=== PATIENT | female | born 1935 | race Two or more races ===

== ENCOUNTER 2021-11-04 17:42 | Inpatient (IN) | payer OTHER ==
[~2021-11-04] VITALS: Ht 152.4 cm; Wt 60.0 kg
[2021-11-04 18:55] LABS: Basophils # (auto) 0.1 10 ^3/uL (0-0.2); Basophils % (auto) 0.5 % (0.0-2.0); Eosinophils # (auto) 0 10 ^3/uL (0-0.8); Eosinophils % (auto) 0.4 % (0.0-7.0); Hematocrit 47.8 % (36.0-46.0); Hemoglobin 16.3 g/dL (12.2-16.2); Lymphocytes # (auto) 2.4 10 ^3/uL (0.4-5.4); Lymphocytes % (auto) 21.8 % (10.0-50.0); Mean Corpuscular Hemoglobin 32.4 pg (28.0-32.0); Mean Corpuscular Hgb Conc. 34.1 g/dL (32.0-36.0); Mean Corpuscular Volume 95.2 fL (80.0-100.0); Monocytes # (auto) 0.6 10 ^3/uL (0-1.3); Monocytes % (auto) 5.8 % (0.0-12.0); Neutrophils # (auto) 7.9 10 ^3/uL (1.6-8.6); Neutrophils % (auto) 71.5 % (37.0-80.0); Nucleated Red Blood Cells % 0.1 %; Red Blood Cells 5.02 10^6/uL (4.0-5.20); Red Cell Distribution Width 13.3 % (11.8-14.3)
[2021-11-04 19:17] LABS: Albumin 3.6 g/dL (3.4-5.0); BUN/Creatinine Ratio 27.1; Calcium 8.8 mg/dL (8.5-10.1); Potassium 4.2 mmol/L (3.5-5.1)
[2021-11-04 19:20] LABS: Bilirubin, Total 0.6 mg/dL (0.2-1.0); Total Protein 7.4 g/dL (6.4-8.2)
[2021-11-04 19:33] LABS: Urine Bacteria NONE SEEN /hpf (None Seen); Urine Blood 3+ /uL (Negative); Urine Mucus FEW (None Seen); Urine Specific Gravity 1.019 (1.001-1.035); Urine WBC 1591 /hpf (0 - 5); Urine WBC Clumps PRESENT /hpf (None Seen)
[2021-11-04] MEDS ORDERED: SODIUM CHLORIDE 0.9% 500 ML IVB ONE (20:15)
[2021-11-04] MEDS ORDERED: cefTRIAXone 1GM/50ML D5W 50 ML IV ONE (20:15)
[2021-11-04] MEDS ORDERED: DOCUSATE SOD 100 MG CAP PO PRN (21:15)
[2021-11-04] MEDS ORDERED: HYDROcodone-ACET 5/325MG TAB PO PRN (21:15)
[2021-11-04] MEDS ORDERED: ONDANSETRON HCL 4 MG/2 ML VIAL IV PRN (21:15)
[2021-11-04] MEDS ORDERED: ACETAMINOPHEN 325 MG TAB PO PRN (21:15)
[2021-11-04] MEDS ORDERED: MORPHINE SULFATE INJECTION 2 MG/ML SYRG IV PRN (22:00)
[2021-11-04] MEDS ORDERED: NITROGLYCERIN 0.4 MG SL TAB SL PRN (22:00)
[2021-11-04] MEDS ORDERED: hydrALAZINE HCL 20 MG/ML VL IV PRN (23:00)
[2021-11-05] VITALS (7 sets, daily range): BP systolic 121–137; BP diastolic 63–80
[2021-11-05] MEDS ORDERED: LEVO50TA7 PO (02:13)
[2021-11-05] MEDS ORDERED: DONETAB5 PO (02:13)
[2021-11-05] MEDS: SODIUM CHLOR 0.9% PF (SALINE LOCK) 10ML VIAL/SYR IV SCH ×4 (06:00→22:55)
[2021-11-05 06:49] LABS: Basophils # (auto) 0 10 ^3/uL (0-0.2); Basophils % (auto) 0.4 % (0.0-2.0); Eosinophils # (auto) 0.1 10 ^3/uL (0-0.8); Hematocrit 41.7 % (36.0-46.0); Hemoglobin 14.6 g/dL (12.2-16.2); Lymphocytes # (auto) 2.6 10 ^3/uL (0.4-5.4); Lymphocytes % (auto) 28.1 % (10.0-50.0); Mean Corpuscular Hemoglobin 32.8 pg (28.0-32.0); Mean Corpuscular Hgb Conc. 35.1 g/dL (32.0-36.0); Mean Corpuscular Volume 93.7 fL (80.0-100.0); Monocytes # (auto) 0.6 10 ^3/uL (0-1.3); Monocytes % (auto) 6.5 % (0.0-12.0); Nucleated Red Blood Cells % 0.1 %; Red Blood Cells 4.45 10^6/uL (4.0-5.20); Red Cell Distribution Width 13.3 % (11.8-14.3); White Blood Cell 9.3 10^3/uL (4.4-10.8)
[2021-11-05 07:07] LABS: Potassium 4.2 mmol/L (3.5-5.1)
[2021-11-05 07:14] LABS: Albumin 3.1 g/dL (3.4-5.0); BUN/Creatinine Ratio 26.2; Calcium 8.4 mg/dL (8.5-10.1)
[2021-11-05 07:17] LABS: Bilirubin, Total 0.6 mg/dL (0.2-1.0); Total Protein 6.2 g/dL (6.4-8.2)
[2021-11-05] MEDS: cefTRIAXone 1GM/50ML D5W 50 ML IV SCH (09:42)
[2021-11-05] MEDS ORDERED: FAMOTIDINE (10MG/ML) 2ML VL IV SCH (10:00)
[2021-11-05] MEDS ORDERED: LACTULOSE 20Gm/30ML SOLN PO ONE (15:00)
[2021-11-05] MEDS ORDERED: LORazepam 2MG/ML-1ML VIAL IV ONE (15:00)
[2021-11-05] MEDS ORDERED: SODIUM CHLORIDE 0.9% 1,000 ML IV ONE (15:00)
[2021-11-06 05:00] VITALS: BP 135/77
[2021-11-06 07:06] LABS: RPR Non Reactive (Non Reactive)
[2021-11-06 08:00] VITALS: BP 132/54
[2021-11-06 09:00] VITALS: BP 132/54
[2021-11-06] MEDS: cefTRIAXone 1GM/50ML D5W 50 ML IV SCH (09:28)
[2021-11-06 13:00] VITALS: BP 121/55
[2021-11-06] MEDS: SODIUM CHLOR 0.9% PF (SALINE LOCK) 10ML VIAL/SYR IV SCH ×2 (14:00→14:01)
[2021-11-06] MEDS ORDERED: CEPH-509 PO (14:26)
[2021-11-06 16:46] VITALS: BP 139/61
[2021-11-06 18:44] VITALS: BP 139/61
== END 2021-11-06 20:08 | disposition home health service (06) | DRG 689 ==
LOC: ER 17:42 → EDBD 17:42 → OVERFLOW 22:24 → CENTRAL 23:08
PROVIDERS: ADMIT Nurse Practitioner Family; ATTEND Internal Medicine
DX: N39.0 Urinary tract infection, site not specified (principal); G92.8 Other toxic encephalopathy; N17.9 Acute kidney failure, unspecified; F03.90 Unspecified dementia, unspecified severity, without behavioral disturbance, psychotic disturbance, mood disturbance, and anxiety; I10 Essential (primary) hypertension; I25.10 Atherosclerotic heart disease of native coronary artery without angina pectoris; N28.9 Disorder of kidney and ureter, unspecified; Z86.73 Personal history of transient ischemic attack (TIA), and cerebral infarction without residual deficits; Z90.710 Acquired absence of both cervix and uterus; Z20.822 Contact with and (suspected) exposure to COVID-19
CPT/HCPCS: 36415; 70450; 70551; 71045; 80053; 81001; 82140; 82607; 83036; 83605; 84443; 85025; 86592; 87040; 87086; 96365; G0378; J0696; J3490

== ENCOUNTER 2022-03-30 11:04 | Emergency (ER) | payer OTHER ==
[~2022-03-30] VITALS: Ht 149.9 cm; Wt 56.0 kg
[~2022-03-30 11:04] MED LIST: CEPH-509 PO; DONETAB5 PO; LEVO50TA7 PO
[2022-03-30] MEDS ORDERED: IOHEXOL 350 MG/ML 100ML IJ ONE (11:42)
[2022-03-30 13:09] LABS: Basophils # (auto) 0 10 ^3/uL (0-0.2); Basophils % (auto) 0.4 % (0.0-2.0); Eosinophils # (auto) 0 10 ^3/uL (0-0.8); Eosinophils % (auto) 0.1 % (0.0-7.0); Hematocrit 44.8 % (36.0-46.0); Hemoglobin 14.5 g/dL (12.2-16.2); Mean Corpuscular Hemoglobin 30.8 pg (28.0-32.0); Mean Corpuscular Hgb Conc. 32.5 g/dL (32.0-36.0); Monocytes # (auto) 0.3 10 ^3/uL (0-1.3); Monocytes % (auto) 3.4 % (0.0-12.0); Neutrophils # (auto) 6.6 10 ^3/uL (1.6-8.6); Neutrophils % (auto) 74.1 % (37.0-80.0); Nucleated Red Blood Cells % 0.1 %; Red Blood Cells 4.72 10^6/uL (4.0-5.20); Red Cell Distribution Width 13.3 % (11.8-14.3); White Blood Cell 8.9 10^3/uL (4.4-10.8)
[2022-03-30 13:20] LABS: Albumin 3.5 g/dL (3.4-5.0); Calcium 8.7 mg/dL (8.5-10.1); Magnesium 2.7 mg/dL (1.6-2.6); Potassium 4.1 mmol/L (3.5-5.1)
[2022-03-30 13:24] LABS: BUN/Creatinine Ratio 19.8; Bilirubin, Total 0.4 mg/dL (0.2-1.0); Total Protein 6.7 g/dL (6.4-8.2)
[2022-03-30 14:55] VITALS: BP 190/108
== END 2022-03-30 15:14 | disposition short-term general hospital (02) ==
LOC: ER 11:04
DX: I63.9 Cerebral infarction, unspecified (principal); R53.1 Weakness; R47.1 Dysarthria and anarthria; Z90.710 Acquired absence of both cervix and uterus; Z20.822 Contact with and (suspected) exposure to COVID-19
CPT/HCPCS: 36415; 70450; 70460; 70491; 71045; 80053; 83735; 84484; 85025; 87426; 93005; 99291; Q9967

== ENCOUNTER 2022-06-10 16:41 | Emergency (ER) | payer OTHER ==
[~2022-06-10] VITALS: Ht 157.5 cm; Wt 72.7 kg
[2022-06-10 17:15] VITALS: BP 170/100
[2022-06-10] MEDS ORDERED: CEPHALEXIN 250 MG CAP PO ONE (20:30)
[2022-06-10] MEDS ORDERED: LIDOCAINE 2%HCL (LOCAL ANESTH.) INJ 10ml MDV IJ ONE (23:30)
[2022-06-11] MEDS ORDERED: LIDOCAINE 1% HCL (LOCAL ANESTH.) INJ 20ML MDV ID ONE
[2022-06-11] MEDS ORDERED: CEPH-510 PO (00:32)
== END 2022-06-11 00:55 | disposition home or self-care (01) ==
LOC: ER 16:42
DX: S51.811A Laceration without foreign body of right forearm, initial encounter (principal); S09.8XXA Other specified injuries of head, initial encounter; Z86.73 Personal history of transient ischemic attack (TIA), and cerebral infarction without residual deficits; Z90.710 Acquired absence of both cervix and uterus; W17.89XA Other fall from one level to another, initial encounter; Y93.89 Activity, other specified; Y92.89 Other specified places as the place of occurrence of the external cause; Y99.8 Other external cause status
CPT/HCPCS: 12004; 70450; 72125; 73090; 99284; J2001

== ENCOUNTER 2024-10-13 17:20 | Emergency (ER) | payer OTHER ==
[~2024-10-13] VITALS: Ht 147.3 cm; Wt 62.3 kg
[~2024-10-13 17:20] MED LIST changes: +CEPH-510 PO
[2024-10-13 18:24] VITALS: BP 167/86; PULSE 78; RESP 16; TEMP 98.3; O2SAT 97
--- NOTE | 2024-10-13 20:50 | ED.PDOC ---
General HPI Comments PT IS REQUESTING TO HAVE HAMILTON CATH CHANGED WAS PLACED 3 DAYS AGO FOR URINARY PROBLEM Chief Complaint: Tube Replacement Time Seen by MD: 18:00 Primary Care Provider: LIANNA Curiel notes: Nurses Notes, Medications, Allergies Allergies: Coded Allergies: NO KNOWN ALLERGIES (Unverified , 11/04/21) Home Meds Active Scripts Cephalexin ( Keflex 500) 500 Mg Cap, 1 CAP PO TID for 10 Days, #30 CAP Prov:FIONA LARSEN DO 06/11/22 Cephalexin (KEFLEX 500) 500 Mg Cap, 1 CAP PO Q6HR, #28 CAP Prov:DIPAK YOUNG MD 11/06/21 Reported Medications Donepezil Hydrochloride (DONEPEZIL HCL) 5 Mg Tab, 5 MG PO, TAB 11/05/21 Levothyroxine Sodium (Levothyroxine Sodium) 50 Mcg Tab, 50 MCG PO QAM for 30 Days, MCG 11/05/21 Information Source: Patient Mode of Arrival: Ambulatory Past Medical History PAST MEDICAL HISTORY: CVA Surgical History: Hysterectomy YARN HANDLER History: No Pertinent YARN HANDLER History Family History Family History: Reviewed,noncontributory to illness Social History Smoker: Non-Smoker Alcohol: Denies ETOH Use Drugs: Denies Drug Use Lives In: Home Constitutional: denies: chills, diaphoresis, fatigue, fever, malaise, sweats, weakness, others EENTM: denies: blurred vision, double vision, ear bleeding, ear discharge, ear drainage, ear pain, ear ringing, eye pain, eye redness, hearing loss, mouth pain, mouth swelling, nasal discharge, nose bleeding, nose congestion, nose pain, photophobia, tearing, throat pain, throat swelling, voice changes, others Respiratory: denies: cough, hemoptysis, orthopnea, SOB at rest, shortness of breath, SOB with excertion, stridor, wheezing, others Cardiovascular: denies: chest pain, dizzy spells, diaphoresis, Dyspnea on exertion, edema, irregular heart beat, left arm pain, lightheadedness, palpitations, PND, syncope, others Gastrointestinal: denies: abdomen distended, abdominal pain, blood streaked bowels, constipated, diarrhea, dysphagia, difficulty swallowing, hematemesis, melena, nausea, poor appetite, poor fluid intake, rectal bleeding, rectal pain, vomiting, others Genitourinary: denies: abnormal vagina bleeding, burning, dyspareunia, dysuria, flank pain, frequency, hematuria, incontinence, pain, , vagina disc harge, urgency, others Neurological: denies: dizziness, fainting, headache, left sided numbness, left sided weakness, numbness, paresthesia, pre-existing deficit, right sided numbness, right sided weakness, seizure, speech problems, tingling, tremors, weakness, others Musculoskeletal: denies: back pain, gout, joint pain, joint swelling, muscle pain, muscle stiffness, neck pain, others Integumetry: denies: bruises, change in color, change in hair/nails, dryness, laceration, lesions, lumps, rash, wounds, others Allergic/Immunocompromised: denies: Difficulty Healing, Frequent Infections, Hives, Itching, others Hematologic/Lymphatic: denies: anemia, blood clots, easy bleeding, easy bruising, swollen glands, others Endocrine: denies: excessive hunger, excessive sweating, excessive thirst, excessive urination, flushing, intolerance to cold, intolerance to heat, unexplained weight gain, unexplained weight loss, others Psychiatric: denies: anxiety, bipolar disorder, depression, hopeless, panic disorder, schizophrenia, sleepless, suicidal, others Physical Exam General Appearance: No Apparent Distress, Normal HEENT: Pharynx Normal Neck: Full Range of Motion, Normal Respiratory: Lungs Clear, No Respiratory Distress, Normal Breath Sounds Cardiovascular: No Murmur, Normal Peripheral Pulses, Regular Rate/Rhythm Breast Exam: Deferred Gastrointestinal: No Organomegaly, Non Tender, No Pulsatile Mass, Normal Bowel Sounds, Soft Genitalia: Deferred Pelvic: Deferred Rectal: Deferred Extremities: Normal capillary refill, Normal inspection, Normal range of motion, Non-tender, No pedal edema Musculoskeletal : Apperance: Normal Neurologic: Alert, igniter assembler II-XII nml as Tested, No Motor Deficits, Normal Affect, Normal Mood, No Sensory Deficits Cerebellar Function: Normal Reflexes: Normal Skin: Dry, Normal Color, Warm Lymphatic: No Adenopathy Was a procedure done? Was a procedure done?: No Differential Diagnosis Kidney stone (Female): Urinary obstruction X-Ray, Labs, Meds, VS Vital Signs Date Time Temp Pulse Resp B/P (MAP) Pulse Ox O2 Delivery O2 Flow Rate FiO2 10/13/24 18:24 78 16 97 Room Air 10/13/24 18:24 98.3 78 16 167/86 (113) 97 98.3 10/13/24 17:39 98.7 75 15 175/65 (101) 96 X-Ray, Labs, Meds, VS Comment KINKED URINARY CATHETER TUBING, LEG BAG AND TUBING REPLACED BY RN, PATIENT TOLERATED WELL NOTED URINE IN BAG COULD RETURN 500 CC OUT. HE WAS TO FOLLOW UP WITH THE PCP IN 2-3 DAYS. ER RETURN PRECAUTIONS DISCUSSED PATIENT INDICATES UNDERSTANDING AND AGREES WITH DISCHARGE PLAN OF CARE. Time of 1ST Reevaluation: 20:45 Reevaluation 1ST: Improved Patient Education/Counseling: Diagnosis, Treatment, Prognosis, Need For Follow Up Family Education/Counseling: Diagnosis, Treatment, Prognosis, Need For Follow Up Departure 1 Departure Time of Disposition: 20:49 Impression: Primary Impression: Hamilton catheter problem Qualified Codes: T83.9XXA - Unspecified complication of genitourinary prosthetic device, implant and graft, initial encounter Disposition: HOME / SELF CARE / HOMELESS Condition: Stable Discharged With: Relative (grand daughter) Critical Care Note Critical Care Time?: No Stability Stability form required: BHAVESH Bustillos Oct 13, 2024 20:50
== END 2024-10-13 21:16 | disposition home or self-care (01) ==
LOC: ER 17:20
DX: T83.098A Other mechanical complication of other urinary catheter, initial encounter (principal); Z79.899 Other long term (current) drug therapy; Z90.710 Acquired absence of both cervix and uterus; Z86.73 Personal history of transient ischemic attack (TIA), and cerebral infarction without residual deficits
CPT/HCPCS: 51702

== ENCOUNTER 2025-02-28 12:13 | Emergency (ER) | payer OTHER, MEDICAID ==
[~2025-02-28] VITALS: Ht 162.6 cm; Wt 61.8 kg
[2025-02-28 12:24] VITALS: BP 182/91; PULSE 72; RESP 18; TEMP 98.1; O2SAT 95
--- NOTE | 2025-02-28 12:31 | ED.PDOC ---
General HPI Comments HPI: Poor Historian. 89-year-old female presents to emergency department for Whitehead catheter problem. Patient has an indwelling Whitehead catheter for acute urinary retention. She said that she was unable to void urine from her Whitehead catheter today. She could not go to see her urologist today so she came to the ER. Past Medical History: Indwelling Whitehead catheter Past Surgical History: REVIEW OF SYSTEMS: CONSTITUTIONAL: Denies acute: fever, diaphoresis, chills, HEAD: Denies acute: headache, photophobia Eyes: Denies acute: Double vision, vision loss, eye pain, eye discharge. EARS: Denies acute: tinnitus, hearing loss, ear discharge, ear pain, THROAT: Denies acute: sore throat, swelling, difficulty swallowing , pain with swallowing, change in voice. NECK: Denies acute: neck pain, neck swelling, stiff neck. HEART: Denies acute : chest pain, palpitations, LUNGS: Denies acute: SOB, wheezing, cough, hemoptysis ABDOMEN: Denies acute: abdominal pain, Nausea, Vomiting, diarrhea, melena , hematemesis, hematochezia SKIN: Denies acute: rash, redness, lesions, itchiness. EXTREMITIES: Denies acute: calf pain, numbness, tingling, weakness, denies pain in extremity. Denies acute: Low back pain. Neuro: Denies acute: focal neurological deficit, motor or sensory focal neurological deficit, tremors, seizure like activity, confusion, dizziness, change in mental status, loss of bowel or bladder function, cauda equina like symptoms. : Denies acute: dysuria, hematuria, flank pain, increase in urinary frequency. PSYCH: Denies acute: hallucination, suicidal ideation, homicidal ideation. FEMALE: Denies acute: abnormal vaginal bleeding, foul odor, unusual discharge. PHYSICAL EXAM: General: ----while---acute distress, awake and alert. Head: normocephalic, atraumatic. Neck: supple, trachea is midline, no swelling. Throat: Normal phonation. Eyes:, no erythema, no purulent discharge, no proptosis, no icterus. Heart: regular rate, regular rhythm, no significant murmur appreciated. Lungs: no apparent respiratory distress, Able to speak in full sentences. No wheezing, no rhonchi, no crackles. No stridors Clear to auscultation bilaterally. Abdomen: non tender to palpation, non distended, soft, no guarding, no rebound, + bowel sounds. Neuro: Awake, Alert, oriented to name, self, situation, follows commands GCS=15. Speech is normal. Skin: no petechia, no purpura, no cyanosis, non-pale, not jaundice. Lower extremities: --no - Pitting edema no deformity, no focal swelling, no calf TTP. Makes eye contact. moves all four extremities. Face: no apparent facial droop. Ambulating in the ED independently. ED COURSE: DISCLAIMER: This medical document was created using an electronic medical record system with voice recognition software and computerized dictation system. Although this document has been carefully reviewed, there might still be some phonetic and typographical errors. Occasional wrong-word or "sound-alike" substitutions may have occurred due to the inherent limitations of voice recognition software. These areas are purely typographical due to imperfections of the software programs and do not reflect any compromise in the patient's medical care. Please read the chart carefully and recognize, using context, where these substitutions have occurred. Chief Complaint: Tube Replacement Time Seen by MD: 12:31 Primary Care Provider: LIANNA Reviewed notes: Nurses Notes, Medications, Allergies Allergies: Coded Allergies: NO KNOWN ALLERGIES (Unverified , 11/04/21) Home Meds Active Scripts Cephalexin ( Keflex 500) 500 Mg Cap, 1 CAP PO TID for 10 Days, #30 CAP Prov:FIONA LARSEN DO 06/11/22 Cephalexin (KEFLEX 500) 500 Mg Cap, 1 CAP PO Q6HR, #28 CAP Prov:DIPAK YOUNG MD 11/06/21 Reported Medications Donepezil Hydrochloride (DONEPEZIL HCL) 5 Mg Tab, 5 MG PO, TAB 11/05/21 Levothyroxine Sodium (Levothyroxine Sodium) 50 Mcg Tab, 50 MCG PO QAM for 30 Days, MCG 11/05/21 Information Source: Patient Severity: Moderate Past Medical History PAST MEDICAL HISTORY: CVA Surgical History: Hysterectomy PROMOTIONS EXECUTIVE PRODUCER History: No Pertinent PROMOTIONS EXECUTIVE PRODUCER History Family History Family History: Reviewed,noncontributory to illness Social History Smoker: Non-Smoker Alcohol: Denies ETOH Use Drugs: Denies Drug Use Lives In: Home Was a procedure done? Was a procedure done?: No Differential Diagnosis Kidney stone (Female): N/A Urinary Problem (Male): Bladder Outlet, Bladder Obstruction, Plelonephritis, Post op Complications, Renal Failure, Urethritis, Urinary Retention, UTI Urinary Problem (Female): Urolithiasis, UTI, Vaginitis X-Ray, Labs, Meds, VS Vital Signs Date Time Temp Pulse Resp B/P (MAP) Pulse Ox O2 Delivery O2 Flow Rate FiO2 02/28/25 12:24 98.1 72 18 182/91 (121) 95 98.1 Time of 1ST Reevaluation: 00:00 Reevaluation 1ST: N/A Patient Education/Counseling: Other Family Education/Counseling: Other Comments Patient eloped SEPSIS Sepsis Screen Physician Orders Urinalysis (02/28/25 12:29) Vital Signs Date Time Temp Pulse Resp B/P (MAP) Pulse Ox O2 Delivery O2 Flow Rate FiO2 02/28/25 12:24 98.1 72 18 182/91 (121) 95 98.1 Departure 1 Departure Time of Disposition: 12:58 Impression: Primary Impression: Whitehead catheter problem Additional Impression: Eloped from emergency department Disposition: 07 LEFT AWOL/ELOPED Condition: Stable Additional Instructions: Patient eloped. She said she is going directly to the urologist office. Discharged With: Self Critical Care Note Critical Care Time?: No I personally scribed for ABIMAEL BASSETT DO ([email or web address]) on 02/28/25 at 12:31. Electronically submitted by Melissa DickersonAD[facility]). ABIMAEL BASSETT DO Feb 28, 2025 12:31
== END 2025-02-28 12:53 | disposition left against medical advice (07) ==
LOC: ER 12:18
DX: T83.9XXA Unspecified complication of genitourinary prosthetic device, implant and graft, initial encounter (principal); Z90.710 Acquired absence of both cervix and uterus; Z86.73 Personal history of transient ischemic attack (TIA), and cerebral infarction without residual deficits

== ENCOUNTER 2025-06-02 11:31 | Emergency (ER) | payer MEDICAID, OTHER ==
[~2025-06-02] VITALS: Ht 147.3 cm; Wt 62.1 kg
[2025-06-02] MEDS: HYDROcodone-ACET 10/325MG TAB PO ONE (12:45)
--- NOTE | 2025-06-02 12:45 | ED.PDOC ---
History of Present Illness HPI Comments 89F presents to the ER in a wheelchair being pushed by son and the c/c of urinary symptoms. Son reports on the pt having a Whitehead catheter placed 2 years ago. Pt states on not being able to urinate since yesterday. Denies any other symptoms at this time. Denies chills, fever, N/V/D, SOB, CP. Denies any other associated symptom's, modifiers, or recent injuries or sick contact at this time. Chief Complaint: Urinary Time Seen by MD: 12:45 Primary Care Provider: LIANNA Reviewed Notes: Nurses Notes, Medications, Allergies Allergies: Coded Allergies: NO KNOWN ALLERGIES (Unverified , 11/04/21) Home Meds Active Scripts Cephalexin ( Keflex 500) 500 Mg Cap, 1 CAP PO TID for 10 Days, #30 CAP Prov:FIONA LARSEN DO 06/11/22 Cephalexin (KEFLEX 500) 500 Mg Cap, 1 CAP PO Q6HR, #28 CAP Prov:DIPAK YOUNG MD 11/06/21 Reported Medications Donepezil Hydrochloride (DONEPEZIL HCL) 5 Mg Tab, 5 MG PO, TAB 11/05/21 Levothyroxine Sodium (Levothyroxine Sodium) 50 Mcg Tab, 50 MCG PO QAM for 30 Days, MCG 11/05/21 Information Source: Patient Mode of Arrival: Wheelchair Severity: Moderate Timing: Hours Duration: Since onset, Hours Prehospital treatment: None Past Medical History PAST MEDICAL HISTORY: Unknown Surgical History: Unknown CLAIMS CLERK History: No Pertinent CLAIMS CLERK History Family History Family History: Reviewed,noncontributory to illness, Unknown Social History Smoker: Non-Smoker Alcohol: Denies ETOH Use Drugs: Denies Drug Use Lives In: Home Constitutional: denies: chills, diaphoresis, fatigue, fever, malaise, sweats, weakness, others EENTM: denies: blurred vision, double vision, ear bleeding, ear discharge, ear drainage, ear pain, ear ringing, eye pain, eye redness, hearing loss, mouth pain, mouth swelling, nasal discharge, nose bleeding, nose congestion, nose p ain, photophobia, tearing, throat pain, throat swelling, voice changes, others Respiratory: denies: cough, hemoptysis, orthopnea, SOB at rest, shortness of breath, SOB with excertion, stridor, wheezing, others Cardiovascular: denies: chest pain, dizzy spells, diaphoresis, Dyspnea on exertion, edema, irregular heart beat, left arm pain, lightheadedness, palpitations, PND, syncope, others Gastrointestinal: denies: abdomen distended, abdominal pain, blood streaked bowels, constipated, diarrhea, dysphagia, difficulty swallowing, hematemesis, melena, nausea, poor appetite, poor fluid intake, rectal bleeding, rectal pain, vomiting, others Genitourinary: reports: others (unable to urinate w/ Whitehead Catheter in); denies: abnormal vagina bleeding, burning, dyspareunia, dysuria, flank pain, frequency, hematuria, incontinence, pain, , vagina discharge, urgency Neurological: denies: dizziness, fainting, headache, left sided numbness, left sided weakness, numbness, paresthesia, pre-existing deficit, right sided numbness, right sided weakness, seizure, speech problems, tingling, tremors, weakness, others Musculoskeletal: denies: back pain, gout, joint pain, joint swelling, muscle pain, muscle stiffness, neck pain, others Integumetry: denies: bruises, change in color, change in hair/nails, dryness, laceration, lesions, lumps, rash, wounds, others Allergic/Immunocompromised: denies: Difficulty Healing, Frequent Infections, Hives, Itching, others Hematologic/Lymphatic: denies: anemia, blood clots, easy bleeding, easy bruising, swollen glands, others Endocrine: denies: excessive hunger, excessive sweating, excessive thirst, excessive urination, flushing, intolerance to cold, intolerance to heat, unexplained weight gain, unexplained weight loss, others Psychiatric: denies: anxiety, bipolar disorder, depression, hopeless, panic disorder, schizophrenia, sleepless, suicidal, others All Other Systems: Reviewed and Negative Physical Exam General Appearance: Moderate Distress, Normal HEENT: Normal ENT Inspection, Pharynx Normal, TMs Normal Neck: Full Range of Motion, Non-Tender, Normal, Normal Inspection Respiratory: Chest Non-Tender, Lungs Clear, No Accessory Muscle Use, No Respiratory Distress, Normal Breath Sounds Cardiovascular: No Edema, No JVD, No Murmur, No Gallop, Normal Peripheral Pulses, Regular Rate/Rhythm Breast Exam: Deferred Gastrointestinal: No Organomegaly, Non Tender, No Pulsatile Mass, Normal Bowel Sounds, Soft Genitalia: Deferred Pelvic: Deferred Rectal: Deferred Extremities: No calf tenderness, Normal capillary refill, Normal inspection, Normal range of motion, Non-tender, No pedal edema Musculoskeletal : Apperance: Normal Neurologic: Alert, paper latcher II-XII nml as Tested, No Motor Deficits, Normal Affect, Normal Mood, No Sensory Deficits Cerebellar Function: NOT DONE Reflexes: NOT DONE Skin: Dry, Normal Color, Warm Peripheral Pulses: 3+ Radial (R), 3+ Radial (L) Lymphatic: No Adenopathy Was a procedure done? Was a procedure done?: No Differential Dx Considerations may include: Urinary tract infection X-Ray, Labs, Meds, VS Vital Signs Date Time Temp Pulse Resp B/P (MAP) Pulse Ox O2 Delivery O2 Flow Rate FiO2 06/02/25 16:18 Room Air* 0 21 06/02/25 16:16 98.0 55 12 124/55 (78) 96 98.0 06/02/25 11:34 97.8 68 16 166/79 98 97.8 Lab Test 06/02/25 14:19 Range/Units Urine Color Colorless Yellow Urine Clarity Turbid H Clear Urine pH 7.5 5.0-9.0 Urine Specific [place] 1.011 1.001-1.035 Urine Protein Negative Negative Urine Ketones Negative Negative Urine Blood Negative Negative /uL Urine Nitrite Negative Negative Urine Bilirubin Negative Negative Urine Urobilinogen Normal Negative mg/dL Urine Leukocyte Esterase 3+ Negative /uL Urine RBC <1 0 - 4 /hpf Urine Microscopic WBC 5 0-5 /HPF Urine Squamous Epithelial Cells None seen <5 /hpf Urine Amorphous Crystals Few None Seen /hpf Urine Bacteria Few H None Seen /hpf Urine Glucose Normal Normal mg/dL Current Medications Medications (Trade) Dose Ordered Sig/Jaime Route Start Time Stop Time Status Last Admin Acetaminophen/ Hydrocodone Bitart ([place] 10/325MG Tab) 1 tab ONCE ONCE PO 06/02/25 12:45 06/02/25 12:46 DC 06/02/25 12:45 Patient alert. Has a Whitehead catheter in place. Vitals stable. Answering all questions. UA shows UTI. Blood pressure initially elevated. Was given prescription of Macrobid antibiotic. Explained to the family. Was told to follow up with her primary care physician. Was told to come back if any problem. Time of 1ST Reevaluation: 13:15 Reevaluation 1ST: Unchanged Patient Education/Counseling: Diagnosis, Treatment, Prognosis Family Education/Counseling: Diagnosis, Treatment, Prognosis SEPSIS Sepsis Screen Date sepsis recognized/suspect: Jun 02, 2025 Time Sepsis recognized/suspect: 1138 Recent Procedure: No On Antibiotic Therapy: No Respiratory Rate >20: No Heart Rate >90: No Temp<36 C (96.8 F) or >38.3 C: No SBP <90 or MAP <65 mmHG: No New Acute Mental Status Change: No Is the patient on CPAP, BIPAP,: No Physician Orders Ok To Change Whitehead (06/02/25 12:38) Vital Signs Date Time Temp Pulse Resp B/P (MAP) Pulse Ox O2 Delivery O2 Flow Rate FiO2 06/02/25 16:18 Room Air* 0 21 06/02/25 16:16 98.0 55 12 124/55 (78) 96 98.0 06/02/25 11:34 97.8 68 16 166/79 98 97.8 Medications Medications Dose Ordered Sig/Jaime Route Start Time Stop Time Status Last Admin Dose Admin Acetaminophen/ Hydrocodone Bitart 1 tab ONCE ONCE PO 06/02/25 12:45 06/02/25 12:46 DC 06/02/25 12:45 Departure 1 Departure Time of Disposition: 16:25 Impression: Primary Impression: UTI (urinary tract infection) Qualified Codes: N30.00 - Acute cystitis without hematuria Disposition: 01 HOME / SELF CARE / HOMELESS Condition: Good e-Prescriptions Nitrofurantoin Monohydrate Mac (Macrobid) 100 Mg Cap 100 MG PO BID for 7 Days, #14 CAP Prov: AWAIS LOTT MD 06/02/25 Discharged With: Self Critical Care Note Critical Care Time?: No Stability Stability form required: No Heart Score Heart Score: Heart Score Response (Comments) Value History N/A 0 EKG N/A 0 Age N/A 0 Risk Factors N/A 0 Troponin N/A 0 Total 0 I personally scribed for AWAIS LOTT MD ([email or web address]) on 06/02/25 at 12:45. Electronically submitted by Sage Smallwood ([email or web address]). AWAIS LOTT MD Jun 02, 2025 12:45
[2025-06-02 14:37] LABS: Urine Amorphous Crystal FEW /hpf (None Seen); Urine Protein, UAD Negative (Negative)
[2025-06-02 16:16] VITALS: BP 124/55; PULSE 55; RESP 12; TEMP 98; O2SAT 96
[2025-06-02] MEDS ORDERED: NITR-87 PO (16:26)
== END 2025-06-02 16:30 | disposition home or self-care (01) ==
LOC: ER 11:31
DX: N39.0 Urinary tract infection, site not specified (principal); Z79.899 Other long term (current) drug therapy
CPT/HCPCS: 81001